=== PATIENT | male | born 1935 | race Caucasian/White ===

== ENCOUNTER → 2019-01-02 | Outpatient (CLI) | payer MEDICARE, BC ==
[~2019-01-02] MED LIST: ASPIRIN 32325 MG/TAB PO; ATORVASTATIN; BETAPACE AF80 MG/TA1 PO; CEPHALEXIN500 M1 PO; ELIQUIS 5MG PO; LEVOXYL0.05 MG PO; LOPRESSOR 225 MG/TAB PO; MULTAQ400 MG PO; ZOCOR 20MG20 MG PO
== END ==
LOC: COL.RAD 11:09
DX: K44.9 Diaphragmatic hernia without obstruction or gangrene (principal); N28.1 Cyst of kidney, acquired; N32.89 Other specified disorders of bladder; N40.1 Benign prostatic hyperplasia with lower urinary tract symptoms
CPT/HCPCS: Q9967

== ENCOUNTER 2019-01-24 07:30 | Day surgery (SDC) | payer MEDICARE, BC ==
[~2019-01-24] VITALS: Ht 172.7 cm; Wt 75.9 kg
[2019-01-24] VITALS (10 sets, daily range): BP systolic 90–123; BP diastolic 47–85; PULSE 69–79; TEMP 97.6–98
--- NOTE | 2019-01-24 13:30 | NUR ---
Patient up from OR, Alert and oriented x3. Oriented to room. Patient states he is still not able to move or feel BLE. Piña to dependent drainage with CBI infusing at a moderate rate. Urine is clear pale yellow. Denies pain or further needs at this time. Provided patient with water and ice.
--- NOTE | 2019-01-24 15:30 | NUR ---
Patient tolerating fluids well, would like to order something for lunch. Assisted patient to order.
--- NOTE | 2019-01-24 18:03 | NUR ---
Patient in bed resting. at bedside. Patient able to move extremities on bed. CBI infusing at a slow rate, urine continues to be clear pale yellow. Post op fluids infusing via gravity to left hand. Patient tolerating food. Patient denies pain or further needs at this time. Will report off to retail shift leader.
--- NOTE | 2019-01-24 20:00 | NUR ---
Pt resting. at bedside. Pt denies pain or discomfort. CBI infusing slowly to munoz catheter. Output is clear and pink. Respirations even and unlabored. Lungs clear to ausculation. BS+. Pedal pulses equal bilaterally- 2+. SCDs in place. Operative IVF infusing. Pt tolerating PO food and hydration. Pt denies needs.
[2019-01-25] VITALS (7 sets, daily range): BP systolic 82–93; BP diastolic 41–57; PULSE 70–78; TEMP 97.7–102
--- NOTE | 2019-01-25 07:00 | NUR ---
Report given to Lauren WHALEN. Pt slept periodically throughout the night without complaints of pain or discomfort. CBI infusing slowly- output is clear pink with no clotting. No needs noted this AM.
--- NOTE | 2019-01-25 08:30 | NUR ---
Patient in bed resting. Alert and oriented x 3. Shift assessment completed. Piña to dependent drainage with CBI infusing at a slow rate. Kane colored urine present in bag. Patient states he has been passing some gas but denies BM. Would like to get up to restroom later today. SCDs to BLE. Denies pain at this time. Denies further needs at this time.
--- NOTE | 2019-01-25 09:00 | NUR ---
Patient up to restroom, x1 assist with gait belt. Gait steady, however patient states he feels light headed when up out of bed. Denies further needs at this time.
--- NOTE | 2019-01-25 09:14 | NUR ---
TERRIE met with the patient and his , Dana to discuss a discharge plan. The patient lives in [place] with Dana. The patient has a walker but reports that he does not use it. The patient reports independence with ADLs. The patient's PCP is Dr. Stella Lee and the patient receives his medications from [facility] [place]. The patient reports no difficulties obtaining his medications. The patient does have advanced directives in the EMR. The patient plans to return home upon discharge. There are no additional needs at this time.
--- NOTE | 2019-01-25 11:50 | NUR ---
Contacted Dr. Swift patients BP is low 80's/40's. TORB new orders for fluid bolus and hospitalist consult.
--- NOTE | 2019-01-25 12:50 | NUR ---
Contacted Dr. Rodriguez for hospitalist consult.
[2019-01-25 13:13] LABS: BASO % 0.1 % (0.0-2.0); GRAN # 7.8 (1.4-6.5); LYMPH # 0.9 (1.2-3.4); LYMPH % 9.4 % (20.0-51.0); MEAN CELL VOLUME 90 fl (80.0-100.0); MEAN CORPUSCULAR HEMOGLOBIN 31 pg (27.0-31.0); MEAN CORPUSCULAR HGB CONC 35 g/dl (33.0-37.0); MEAN PLATELET VOLUME 10.6 fl (7.4-10.4); MONO # 0.6 (0.1-0.6); MONO % 6.2 % (1.7-9.3); PLATELET COUNT 101 K/mm3 (130-400); RED BLOOD COUNT 3.82 M/mm3 (4.20-5.60); REDCELL DISTRIBUTION WIDTH-CV 12.3 % (11.5-14.5)
[2019-01-25 13:15] LABS: HEMATOCRIT 34.3 % (42.0-52.0)
[2019-01-25 13:22] LABS: ALBUMIN 2.9 gm/dL (3.5-5.0); BILIRUBIN,TOTAL 0.8 mg/dL (0.0-1.0); CREATININE, serum 1.32 (0.66-1.25); POTASSIUM 4.1 mmol/L (3.4-5.0); TOTAL PROTEIN 5.9 gm/dL (6.4-8.2)
[2019-01-25 13:47] LABS: INR 1.3 (0.8-3.0); PROTHROMBIN TIME 15.1 SECONDS (9.7-12.8)
--- NOTE | 2019-01-25 14:26 | NUR ---
Patient called out to nurses station states that he would like nurse to call physician because "nothing looks appetizing to eat." Denies nausea, denies abdominal pain. Bowel sounds hypoactive, passing flatus. would like to attempt to bring in food for patient to eat. Patient refuses, offered ice chips and water at this time. Patient states he did have something to eat this AM but does not have appetite for lunch. Denies further needs at this time.
--- NOTE | 2019-01-25 15:00 | NUR ---
Dr. Rodriguez in to see patient.
[2019-01-25 15:24] LABS: ARTERIAL BLD GAS O2 SATURATION 95.4 % (92-100); ARTERIAL BLD GAS TCO2 CT 23.4; ARTERIAL BLOOD GAS BASE EXCESS -1.4 (-2-2); ARTERIAL BLOOD GAS HCO3 22.4 meq/L (22-26); ARTERIAL BLOOD GAS PCO2 34.3 mmHg (35-45); ARTERIAL BLOOD GAS PO2 79.8 mmHg (80-100); ARTERIAL BLOOD GAS pH 7.43 (7.35-7.45)
[2019-01-25 17:07] LABS: PH 5 (5-8); SQUAMOUS EPITHELIAL None Seen /hpf; URINE APPEARANCE Hazy; URINE BACTERIA None Seen /hpf; URINE BILIRUBIN Negative (NEGATIVE); URINE BLOOD 3+ (NEGATIVE); URINE COLOR Yellow; URINE GLUCOSE Negative (NEGATIVE); URINE KETONE 1+ (NEGATIVE); URINE LEUKOCYTE ESTERASE Trace (NEGATIVE); URINE NITRATE Negative (NEGATIVE); URINE PROTEIN(semi-quant) 2+ (NEGATIVE); URINE RBC 20-50 /hpf; URINE UROBILINOGEN Negative (NEGATIVE)
[2019-01-25 17:19] LABS: COLLECTION METHOD CLEAN CATCH
--- NOTE | 2019-01-25 18:08 | NUR ---
Dr. Swift in to see patient.
--- NOTE | 2019-01-25 18:10 | NUR ---
Patient states he is feeling better this afternoon, was able to eat something for supper. Denies pain at this time. Piña maintined to Dependent drainge with clear peach urine present, CBI infusing at a very slow rate. SCDs to BLE. Denies further needs at this time. Will report off to caustic cresylate shift superintendent.
--- NOTE | 2019-01-25 19:17 | NUR ---
Pt is resting. No distress noted. Patient denies pain or discomfort. CBI dripping at very slow rate. Output is clear, yellow. No clots noted. Lungs clear. BS+. IVF infusing to LH. Pts VS are being monitored. Pt is wearing O2 @ 2L via NC. Pt is requesting to take it off. SpO2 98% on 2L. O2 turned down to 1L- maintaining 97%. Will continue to monitor Spo2 and wean pt, if possible. No further needs noted.
[2019-01-26 00:14] VITALS: BP 90/38; BP 97/50; PULSE 73; TEMP 99.2
[2019-01-26 04:13] VITALS: BP 86/50; PULSE 65; TEMP 98.2
--- NOTE | 2019-01-26 06:00 | NUR ---
Pt resting this AM. Has slept periodically throughout the night. No complaints of pain. CBI has been clamped and output has been clear, yellow. Primed with 200cc Irrigation solution. 30cc removed from balloon to deflate. Catheter discontinued. Well tolerated by patient. Instructions given to start 6 bottle routine. Patient reports understanding.
--- NOTE | 2019-01-26 06:45 | NUR ---
awake resting in bed, bedside shift report received from MARLEE Machuca
[2019-01-26 07:13] LABS: CREATININE, serum 1.16 (0.66-1.25); POTASSIUM 4.3 mmol/L (3.4-5.0)
--- NOTE | 2019-01-26 07:52 | NUR ---
resting in bed, denies urge to void, full assessment completed, see interventions for further info, declines to order breafkast at this time just doesn't feel hungry, in to visit
[2019-01-26 09:00] VITALS: BP 94/65; PULSE 73; TEMP 97.6
--- NOTE | 2019-01-26 09:00 | NUR ---
sitting up in bed eating breakfast, assisted up to bathroom by MARLEE Mccloud and was able to void, instructed to call each time needs to get up to void and verbalizes understanding
--- NOTE | 2019-01-26 10:15 | NUR ---
Dr Swift in to see patient, will talk with hospitalist and will possibly discharge later today,
--- NOTE | 2019-01-26 10:50 | NUR ---
up to bathroom and voided, urine is yellow and slightly pink tinged
--- NOTE | 2019-01-26 11:42 | NUR ---
he and are asking about if he going to be able to go home, explained I will talk with hospitalist if they have said it is OK, verbalizes understanding
[2019-01-26 12:00] VITALS: BP 92/4; BP 92/48; PULSE 69; TEMP 97
--- NOTE | 2019-01-26 12:30 | NUR ---
up to bathroom with assistance of and voided yellow pink tinged urine, then back to bed, is ready to go home when time
--- NOTE | 2019-01-26 14:03 | NUR ---
int discontinued, discharge instructions given to patient and his , verbalizes understanding
--- NOTE | 2019-01-26 14:15 | NUR ---
discharged per WC
== END 2019-01-26 14:15 | disposition home or self-care (01) ==
LOC: SDCO 07:30 → SURG 13:35 → SDCO 01-26 14:15
PROVIDERS: Hospitalist; Internal Medicine
DX: N40.1 Benign prostatic hyperplasia with lower urinary tract symptoms (principal); N17.9 Acute kidney failure, unspecified; I95.9 Hypotension, unspecified; R50.9 Fever, unspecified; I48.91 Unspecified atrial fibrillation; Z95.0 Presence of cardiac pacemaker; Z94.7 Corneal transplant status; Z79.01 Long term (current) use of anticoagulants; Z79.899 Other long term (current) drug therapy; E03.9 Hypothyroidism, unspecified; Z87.891 Personal history of nicotine dependence; Z80.0 Family history of malignant neoplasm of digestive organs; E78.5 Hyperlipidemia, unspecified; Z85.828 Personal history of other malignant neoplasm of skin
CPT/HCPCS: OP; 99232-AI; J0690; J2250; J2270; J2704; J3010; J3480; J7030; J7120